=== PATIENT | female | born 1970 | race Caucasian/White ===

== ENCOUNTER 2018-04-14 22:51 | Emergency (ER) | payer OTHER ==
--- NOTE | 2018-04-14 23:20 | PDOC ---
History of Present Illness - General Stated Complaint: BLEEDING Time Seen by Provider: 04/14/18 23:20 History Source: Patient Exam Limitations: No Limitations Past History - Past Medical History Allergies/Adverse Reactions: Allergies Allergy/AdvReac Type Severity Reaction Status Date / Time No Known Allergies Allergy Verified 04/14/18 23:13 Home Medications: Ambulatory Orders Cyclobenzaprine HCl [Flexeril -] 10 mg PO TID PRN #21 tablet 03/09/16 Naproxen [Naprosyn -] 500 mg PO BID PRN #14 tablet 03/09/16 Diabetes: Yes Hypercholesterolemia: Yes - Immunization History Immunization Up to Date: Yes - Suicide/Smoking/Psychosocial Hx Smoking History: Never smoked Have you smoked in the past 12 months: No Information on smoking cessation initiated: No Hx Alcohol Use: No Drug/Substance Use Hx: No Substance Use Type: None *Physical Exam - Vital Signs Last Vital Signs Temp Pulse Resp BP Pulse Ox 97.5 F L 79 22 H 196/86 H 100 04/14/18 22:51 04/14/18 22:51 04/14/18 22:51 04/14/18 22:51 04/14/18 22:51 Moderate Sedation - Procedure Monitoring Vital Signs: Procedure Monitoring Vital Signs Temperature 97.5 F L 04/14/18 22:51 Pulse Rate 79 04/14/18 22:51 Respiratory Rate 22 H 04/14/18 22:51 Blood Pressure 196/86 H 04/14/18 22:51 O2 Sat by Pulse Oximetry (%) 100 04/14/18 22:51 *DC/Admit/Observation/Transfer - Discharge Dispostion Condition at time of disposition: Fair - Referrals - Patient Instructions - Post Discharge Activity
[2018-04-14 23:34] VITALS: TEMP 97.5; BMI 23.0
--- NOTE | 2018-04-15 00:39 | PDOC ---
Attending Attestation - Resident Resident Name: NidiaDonny - ED Attending Attestation I have performed the following: I have examined & evaluated the patient, The case was reviewed & discussed with the resident, I agree w/resident's findings & plan, Exceptions are as noted - HPI HPI: 04/15/18 00:38 48 yo female p/w vaginal bleeding . she has a history of fibroids - Physicial Exam PE: 04/15/18 00:39 petite 48 yo female p/w vaginal bleeding head ncat neck supple lungs cta b/l cvs [id number] abd no rebound,no guarding pelvic ext no edema skin warm and dry neuro axox3 ,ambulatory - Medical Decision Making 04/15/18 01:46 reviewed her cbc and she has no anemia at this time awaiting her pelvic ultrasound signed out to Dr Leonard <Blaire Chase - Last Filed: 04/15/18 01:45> - HPI HPI: 04/15/18 01:51 The patient is a 48 year old female, with a significant past medical history of anemia, hyperlipidemia, diabetes and uterine fibroids, who presents to the emergency department with vaginal bleeding for a couple hours prior to presentation. The patient denies fever, chills, nausea, vomiting, abdominal pain or dysuria. LMP: 03/20/2018 Allergies: None reported. Past Surgical History: None reported. Social History: Non-smoker. Denies alcohol or drug use. Documentation prepared by Dulce Maria Rod, acting as hospital medical assistant for Blaire Chase MD. <Dulce Maria Hernandez - Last Filed: 04/15/18 01:51>
[2018-04-15 01:13] LABS: BASO % 0.8 % (0-2.0); EOS % 0.9 % (0-4.5); HEMATOCRIT 35.8 % (32.4-45.2); HEMOGLOBIN 12.3 GM/dL (10.7-15.3); LYMPH % 21.5 % (8-40); MCHC 34.4 g/dl (32.0-36.0); MEAN CELL VOLUME 75.6 fl (80-96); MEAN PLT VOLUME 8.2 fl (7.5-11.1); MONO % 7.7 % (3.8-10.2); NEUT % 69.1 % (42.8-82.8); PLATELET COUNT 258 K/MM3 (134-434); RBC 4.73 M/mm3 (3.60-5.2); RDW 15.8 % (11.6-15.6); WHITE BLOOD COUNT 7.3 K/mm3 (4.0-10.0)
--- NOTE | 2018-04-15 01:57 | PDOC ---
History of Present Illness - General Chief Complaint: Vaginal Bleeding Stated Complaint: BLEEDING Time Seen by Provider: 04/14/18 23:20 - History of Present Illness Initial Comments: 04/15/18 01:57 48f with pmh of fibroids, prediabetes, hyperlipidemia and anemia presents to the ED with vaginal bleeding 2h before presentation. She denies any pain, just profuse clotted bleeding while she was sitting down at home. Denies vigorous/traumatic coitus. Denies dysuria. LMP was March 20. Past History - Past Medical History Allergies/Adverse Reactions: Allergies Allergy/AdvReac Type Severity Reaction Status Date / Time No Known Allergies Allergy Verified 04/14/18 23:13 Home Medications: Ambulatory Orders Cyclobenzaprine HCl [Flexeril -] 10 mg PO TID PRN #21 tablet 03/09/16 Naproxen [Naprosyn -] 500 mg PO BID PRN #14 tablet 03/09/16 Diabetes: Yes Hypercholesterolemia: Yes - Immunization History Immunization Up to Date: Yes - Suicide/Smoking/Psychosocial Hx Smoking History: Never smoked Have you smoked in the past 12 months: No Information on smoking cessation initiated: No Hx Alcohol Use: No Drug/Substance Use Hx: No Substance Use Type: None Review of Systems - Review of Systems Able to Perform ROS?: Yes Is the patient limited [place] proficient: No Constitutional: No: Symptoms Reported HEENTM: No: Symptoms Reported Respiratory: No: Symptoms reported Cardiac (ROS): No: Symptoms Reported ABD/GI: No: Symptoms Reported : Yes: Symptoms Reported, See HPI Musculoskeletal: No: Symptoms Reported Integumentary: No: Symptoms Reported Neurological: No: Symptoms reported All Other Systems: Reviewed and Negative *Physical Exam - Vital Signs Last Vital Signs Temp Pulse Resp BP Pulse Ox 97.5 F L 79 22 H 196/86 H 100 04/14/18 22:51 04/14/18 22:51 04/14/18 22:51 04/14/18 22:51 04/14/18 22:51 - Physical Exam General Appearance: Yes: Nourished, Appropriately Dressed. No: Apparent Distress HEENT: positive: EOMI, MICHELLE, Normal ENT Inspection Respiratory/Chest: positive: Lungs Clear, Normal Breath Sounds. negative: Chest Tender, Respiratory Distress Cardiovascular: positive: Regular Rhythm, Regular Rate, S1, S2 Female Pelvic Exam: positive: normal external exam, normal adnexa, other (blood coming out). negative: cervical os closed, CMT Gastrointestinal/Abdominal: positive: Normal Bowel Sounds, Tender (suprabic and b/.l lower quadrant tenderness. ), Flat, Soft Musculoskeletal: positive: Normal Inspection. negative: CVA Tenderness Extremity: positive: Normal Capillary Refill, Normal Inspection, Normal Range of Motion Integumentary: positive: Normal Color, Dry, Warm Neurologic: positive: Fully Oriented, Alert, Normal Mood/Affect, Normal Response , Motor Strength 5/5 Moderate Sedation - Procedure Monitoring Vital Signs: Procedure Monitoring Vital Signs Temperature 97.5 F L 04/14/18 22:51 Pulse Rate 79 04/14/18 22:51 Respiratory Rate 22 H 04/14/18 22:51 Blood Pressure 196/86 H 04/14/18 22:51 O2 Sat by Pulse Oximetry (%) 100 04/14/18 22:51 ED Treatment Course - LABORATORY CBC & Chemistry Diagram: 04/15/18 01:00 04/15/18 01:00 - ADDITIONAL ORDERS Additional order review: Laboratory Results 04/15/18 04/15/18 04/15/18 01:00 01:00 01:00 PT with INR Cancelled INR Cancelled PTT (Actin FS) Cancelled Sodium Cancelled Potassium Cancelled Chloride Cancelled Carbon Dioxide Cancelled Anion Gap Cancelled BUN Cancelled Creatinine Cancelled Creat Clearance w eGFR Cancelled Random Glucose Cancelled Calcium Cancelled Total Bilirubin Cancelled AST Cancelled ALT Cancelled Alkaline Phosphatase Cancelled Total Protein Cancelled Albumin Cancelled Anti-A Titer Cancelled Blood Type Cancelled Antibody Screen Cancelled 04/15/18 01:00 RBC 4.73 MCV 75.6 L MCHC 34.4 RDW 15.8 H MPV 8.2 Neutrophils % 69.1 Lymphocytes % 21.5 Monocytes % 7.7 Eosinophils % 0.9 Basophils % 0.8 - RADIOLOGY Radiology Studies Ordered: Category Date Time Status TRANSVAGINAL ULTRASOUND US [US] Stat Ultrasound 04/15/18 00:34 Taken Medical Decision Making - Medical Decision Making 04/15/18 02:52 Fibroids vs irregular menses vs Pelvic positive from blood coming from os, not vaginal judd. No sign of anemia on labs. US positive for intramural fibroid. Will d/c with follow up 04/15/18 02:57 Patient signed out to Dr. Driscoll *DC/Admit/Observation/Transfer Diagnosis at time of Disposition: Fibroids - Discharge Dispostion Disposition: HOME Condition at time of disposition: Fair Decision to Admit order: No - Referrals - Patient Instructions Printed Discharge Instructions: DI for Uterine Fibroids Additional Instructions: Follow up with your OBGYN within the week. Come back to the Emergency department for any new, worsening or concerning symptoms. - Post Discharge Activity
[2018-04-15 02:22] VITALS: BP 171/84; PULSE 81
[2018-04-15 02:23] LABS: URINE APPEARANCE CLEAR; URINE BILIRUBIN NEGATIVE (<2.0 mg/dL); URINE COLOR LTYELLOW; URINE GLUCOSE (UA) NEGATIVE (NEGATIVE); URINE KETONE TRACE (NEGATIVE); URINE LEUK ESTERASE TRACE (NEGATIVE); URINE NITRITE NEGATIVE (NEGATIVE); URINE PROTEIN NEGATIVE (NEGATIVE); URINE UROBILINOGEN NEGATIVE mg/dL (0.2-1.0)
[2018-04-15 03:00] LABS: INR 1.13 (0.83-1.09); PROTHROMBIN TIME (PATIENT) 13.4 SEC (9.7-13.0)
[2018-04-15 03:02] LABS: ACTIVATED PTT 26.9 SECONDS (25.2-36.5)
[2018-04-15 03:10] LABS: ALBUMIN 3.4 g/dl (3.4-5.0); ALK PHOS 97 U/L (45-117); ANION GAP 6 MMOL/L (8-16); BILIRUBIN,TOTAL 0.3 mg/dL (0.2-1); BLOOD UREA NITROGEN 11 mg/dL (7-18); CALCIUM 8.3 mg/dL (8.5-10.1); CHLORIDE 106 mmol/L (98-107); CO2 27 mmol/L (21-32); CREATININE 0.6 mg/dL (0.55-1.3); GLUCOSE,RANDOM 139 mg/dL (74-106); POTASSIUM 3.7 mmol/L (3.5-5.1); SGOT/AST 15 U/L (15-37); SGPT/ALT 18 U/L (13-61); SODIUM 139 mmol/L (136-145); TOT PROT 6.8 g/dl (6.4-8.2)
[2018-04-15 03:29] LABS: EPI CELLS RARE /HPF (FEW); URINE MUCUS RARE
--- NOTE | 2018-04-15 03:40 | PDOC ---
*Physical Exam - Vital Signs Last Vital Signs Temp Pulse Resp BP Pulse Ox 97.5 F L 81 18 171/84 H 100 04/15/18 02:21 04/15/18 02:21 04/15/18 02:21 04/15/18 02:21 04/15/18 02:21 - Physical Exam Comments: 04/15/18 03:28 Received sign out from Dr. Jacob ED Treatment Course - LABORATORY CBC & Chemistry Diagram: 04/15/18 01:00 04/15/18 02:32 - ADDITIONAL ORDERS Additional order review: Laboratory Results 04/15/18 04/15/18 04/15/18 02:32 02:32 02:13 PT with INR 13.40 H INR 1.13 H PTT (Actin FS) 26.9 Sodium 139 Potassium 3.7 Chloride 106 Carbon Dioxide 27 Anion Gap 6 L BUN 11 Creatinine 0.6 Creat Clearance w eGFR > 60 Random Glucose 139 H Calcium 8.3 L Total Bilirubin 0.3 AST 15 ALT 18 Alkaline Phosphatase 97 Total Protein 6.8 Albumin 3.4 Serum , Qual Urine Color Ltyellow Urine Appearance Clear Urine pH 6.0 Ur Specific [place] 1.013 Urine Protein Negative Urine Glucose (UA) Negative Urine Ketones Trace H Urine Blood 3+ H Urine Nitrite Negative Urine Bilirubin Negative Urine Urobilinogen Negative Ur Leukocyte Esterase Trace Anti-A Titer Blood Type Antibody Screen 04/15/18 04/15/18 04/15/18 01:00 01:00 01:00 PT with INR INR PTT (Actin FS) Sodium Cancelled Potassium Cancelled Chloride Cancelled Carbon Dioxide Cancelled Anion Gap Cancelled BUN Cancelled Creatinine Cancelled Creat Clearance w eGFR Cancelled Random Glucose Cancelled Calcium Cancelled Total Bilirubin Cancelled AST Cancelled ALT Cancelled Alkaline Phosphatase Cancelled Total Protein Cancelled Albumin Cancelled Serum , Qual Negative Urine Color Urine Appearance Urine pH Ur Specific [place] Urine Protein Urine Glucose (UA) Urine Ketones Urine Blood Urine Nitrite Urine Bilirubin Urine Urobilinogen Ur Leukocyte Esterase Anti-A Titer Cancelled Blood Type Cancelled Antibody Screen Cancelled 04/15/18 01:00 PT with INR Cancelled INR Cancelled PTT (Actin FS) Cancelled Sodium Potassium Chloride Carbon Dioxide Anion Gap BUN Creatinine Creat Clearance w eGFR Random Glucose Calcium Total Bilirubin AST ALT Alkaline Phosphatase Total Protein Albumin Serum , Qual Urine Color Urine Appearance Urine pH Ur Specific [place] Urine Protein Urine Glucose (UA) Urine Ketones Urine Blood Urine Nitrite Urine Bilirubin Urine Urobilinogen Ur Leukocyte Esterase Anti-A Titer Blood Type Antibody Screen 04/15/18 01:00 RBC 4.73 MCV 75.6 L MCHC 34.4 RDW 15.8 H MPV 8.2 Neutrophils % 69.1 Lymphocytes % 21.5 Monocytes % 7.7 Eosinophils % 0.9 Basophils % 0.8 *DC/Admit/Observation/Transfer Diagnosis at time of Disposition: Fibroids - Discharge Dispostion Disposition: HOME Condition at time of disposition: Fair Decision to Admit order: No - Referrals Referrals: Alin Multani MD [Staff Physician] - - Patient Instructions Printed Discharge Instructions: DI for Uterine Fibroids Additional Instructions: You were seen in the emergency department for the evaluation of your symptoms. Your ultrasound showed fibroids. Labs were within normal limits. Please follow up with your OBGYN doctor or the OBGYN doctor we referred you to within the week after discharge for follow up care and management. Use tylenol for pain management as directed on the label. Please come back to the emergency department if you have worsening symptoms or new concerning symptoms such as increased bleeding, feelings of wanting to pass out, and weakness. Thank you. - Post Discharge Activity Forms/Work/School Notes: Back to Work
== END 2018-04-15 04:01 | disposition home or self-care (01) ==
LOC: JER 22:51
DX: D25.9 Leiomyoma of uterus, unspecified (principal)
CPT/HCPCS: 36415; 76830-TC; 80053; 81003; 81015; 84703; 85025; 85610; 85730; 87086; 99284-25